=== PATIENT | female | born 1945 | race American Indian/Alaskan Native ===

== ENCOUNTER 2021-05-01 13:49 | Outpatient (CLI) | payer MEDICARE ==
--- NOTE | 2021-05-01 17:32 | Ultrasound Report ---
BILATERAL DIGITAL DIAGNOSTIC MAMMOGRAM WITH CAD , 05/01/2021 RIGHT LIMITED BREAST ULTRASOUND CLINICAL INFORMATION / INDICATION: Palpable right breast mass TECHNIQUE: Digital bilateral mammographic imaging was performed. Spot compression views were obtained . Limited ultrasound was performed. This examination was interpreted with the benefit of Computer-Aid ed Detection (CAD) analysis. COMPARISON: None available. FINDINGS: Breast Density: There are scattered areas of fibroglandular density. MAMMOGRAPHIC FINDINGS: No dominant mass, suspicious calcifications, or architectural distortion in th e left breast. Spot compression views show a spiculated mass in the 2-3:00 location of the right breast, anterior de pth. The mass measures approximately 5.5 cm in greatest diameter. This mass corresponds to the palpab le lump and is consistent with a breast carcinoma. ULTRASOUND FINDINGS: Targeted ultrasound evaluation was performed of the area of interest. Sonograp hic evaluation of the right breast, in the area of the palpable lump demonstrates an irregular solid mass in the 2-3:00 location approximately 4.8 x 3.4 cm. Sonographic evaluation of the right axilla sh ows at least one lymph node that is abnormal with marked focal cortical thickening of approximately 1 1 mm. The appearance is very suggestive for a metastatic lymph node. IMPRESSION: There is a 5 cm spiculated mass in the right breast at approximately 2-3:00, highly sugge stive for a breast carcinoma. Additionally, there is at least one lymph node in the right axilla chevy y suggestive for a metastatic axillary lymph node. Surgical consultation with right breast biopsy is recommended. Follow up recommendation: Biopsy BI-RADS Category 5: Highly Suggestive of Malignancy. A "normal" or negative report should not discourage follow up or biopsy of a clinically significant f inding. A written summary of these findings will be mailed to the patient. The patient will be entered into a mammography reporting system which will generate a reminder letter for the patient's next appointmen t at the appropriate interval. According to the [employer], yearly mammograms are recommended starting at age 40 and continuing as long as a woman is in good health. Breast MRI is recommended for women with an jose roximately 20-25% or greater lifetime risk of breast cancer, including women with a strong family his tory of breast or ovarian cancer and women who have been treated for Hodgkin's disease. Signer Name: Sandra Spicer MD Signed: 05/01/2021 5:27 PM Workstation Name: [id number]
== END 2021-05-01 13:50 | disposition home or self-care (01) ==
LOC: MAMMO 13:49
PROVIDERS: ATTEND Internal Medicine
DX: N63.12 Unspecified lump in the right breast, upper inner quadrant (principal); R92.8 Other abnormal and inconclusive findings on diagnostic imaging of breast
CPT/HCPCS: 77066

== ENCOUNTER 2021-05-13 09:31 | Inpatient (IN) | payer MEDICARE ==
--- NOTE | 2021-05-13 10:12 | Cat Scan Report ---
CT HEAD WITHOUT CONTRAST INDICATION / CLINICAL INFORMATION: CODE STROKE CALL ER MAIN AT 8199 neuro deficits <6hrs or sx prese nt upon awakening. TECHNIQUE: Axial imaging performed from the skull apex through the skull base without the use of cont rast. Sagittal and coronal reformatted images. All CT scans at this location are performed using CT dose reduction for ALARA by means of automated exposure control. COMPARISON: None available. FINDINGS: CEREBRAL PARENCHYMA: No significant abnormality. No acute territorial infarct. There is mild nonspeci fic hypoattenuation throughout the white matter consistent with chronic ischemic changes. No chronic infarct is appreciated. HEMORRHAGE: None. EXTRA-AXIAL SPACES: Normal in size and morphology for the patient's age. VENTRICULAR SYSTEM: Normal in size and morphology for the patient's age. MIDLINE SHIFT OR HERNIATION: None. CEREBELLUM / BRAINSTEM: No significant abnormality. CALVARIUM: No significant abnormality. ORBITS: Normal as visualized. PARANASAL SINUSES / MASTOID AIR CELLS: Normal as visualized. SOFT TISSUES of HEAD: No significant abnormality. ADDITIONAL FINDINGS: None. IMPRESSION: No acute intracranial abnormality. Age-related findings as described. CODE STROKE: Time of Communication (FORK REPAIRER/CDT): 0907 hours Licensed Practitioner Receiving Report: Dr. Christianson Signer Name: Cordell Chinchilla Jr, MD Signed: 05/13/2021 10:08 AM Workstation Name: [id number]
--- NOTE | 2021-05-13 10:22 | Emergency Department Report ---
ED Altered Mental Status HPI - General Stated Complaint: POSS STROKE PUI?: Yes Time Seen by Provider: 05/13/21 09:40 Source: EMS Mode of arrival: Ambulatory Limitations: Altered Mental Status - History of Present Illness Initial Comments: Chief complaint: Altered mental status, low oxygen saturation HPI: This is a 76-year-old female with history of atrial fibrillation, COPD who presents with altered mental status and possible left-sided weakness. Patient last known well time 1:30 PM on Thursday. Family member called EMS for decreased level of consciousness. Patient does not give any history due to altered mental status. She does deny pain. 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 First responders reported to paramedics that patient had severe hypoxia. Oxygen saturation on room air 40%. Patient required nonrebreather for oxygen supplementation. MD Complaint: altered mental status, decreased responsiveness -: unknown Severity: severe Consistency of Symptoms: waxing and waning Context: COPD Treatments Prior to Arrival: oxygen - Related Data Allergies Allergy/AdvReac Type Severity Reaction Status Date / Time No Known Allergies Allergy Verified 05/13/21 09:37 ED Review of Systems ROS: Stated complaint: POSS STROKE Other details as noted in HPI Comment: Unobtainable due to pts medical conditions (Altered mental status) ED Past Medical Hx - Past Medical History Previous Medical History?: Yes Hx COPD: Yes Additional medical history: Atrial fibrillation - Surgical History Additional Surgical History: Unable to obtain - Family History Family history: other (Noncontributory to this presentation) - Social History Smoking Status: Unknown if ever smoked Substance Use Type: Other (Unable to obtain) ED Physical Exam - General General appearance: lethargic, other (Arouses to noxious stimuli) - Head Head exam: Present: atraumatic, normocephalic - Eye Eye exam: Present: normal appearance. Absent: scleral icterus, conjunctival injection - ENT ENT exam: Present: mucous membranes moist - Neck Neck exam: Present: normal inspection, full ROM - Respiratory Respiratory exam: Present: decreased breath sounds. Absent: wheezes, rales - Cardiovascular Cardiovascular Exam: Present: regular rate, normal rhythm, normal heart sounds. Absent: systolic murmur, diastolic murmur, rubs, gallop - GI/Abdominal GI/Abdominal exam: Present: soft, normal bowel sounds. Absent: distended, tenderness, guarding - Extremities Exam Extremities exam: Present: normal inspection - Neurological Exam Neurological exam: Present: altered - Psychiatric Psychiatric exam: Present: flat affect - Skin Skin exam: Present: warm, dry, intact, normal color. Absent: rash ED Course Vital Signs 05/13/21 05/13/21 10:00 11:25 Pulse Rate 93 H Pulse Rate [ 78 Anterior Bilateral Throughout] Respiratory 22 Rate Respiratory 19 Rate [Anterior Bilateral Throughout] O2 Sat by Pulse 95 Oximetry - Reevaluation(s) Reevaluation #1: 05/13/21 15:23 Repeat ABG persistent respiratory failure with hypercapnia respiratory acidosis: BiPAP FiO2 decreased to 30%. - ABG Interpretation Ph: 7.24 PCO2: 82 PO2: 74 Interpretation: respiratory acidosis - Lab Data Result diagrams: 05/13/21 10:35 05/13/21 10:35 Lab Results 05/13/21 05/13/21 05/13/21 Range/Units 10:03 10:35 10:35 WBC 3.1 L (4.5-11.0) K/mm3 RBC 3.88 (3.65-5.03) M/mm3 Hgb 12.0 (10.1-14.3) gm/dl Hct 35.7 (30.3-42.9) % MCV 92 (79-97) fl MCH 31 (28-32) pg MCHC 34 (30-34) % RDW 13.5 (13.2-15.2) % Plt Count 270 (140-440) K/mm3 Turner % (Auto) Exchange Specialist Add Manual Diff Complete Total Counted 100 Seg Neuts % (Manual) 51.0 (40.0-70.0) % Lymphocytes % (Manual) 44.0 H (13.4-35.0) % Monocytes % (Manual) 5.0 (0.0-7.3) % Nucleated RBC % Not Reportable Seg Neutrophils # Man 1.6 L (1.8-7.7) K/mm3 Band Neutrophils # 0.0 K/mm3 Lymphocytes # (Manual) 1.4 (1.2-5.4) K/mm3 Abs React Lymphs (Man) 0.0 K/mm3 Monocytes # (Manual) 0.2 (0.0-0.8) K/mm3 Eosinophils # (Manual) 0.0 (0.0-0.4) K/mm3 Basophils # (Manual) 0.0 (0.0-0.1) K/mm3 Metamyelocytes # 0.0 K/mm3 Myelocytes # 0.0 K/mm3 Promyelocytes # 0.0 K/mm3 Blast Cells # 0.0 K/mm3 WBC Morphology Not Reportable Hypersegmented Neuts Not Reportable Hyposegmented Neuts Not Reportable Hypogranular Neuts Not Reportable Smudge Cells Not Reportable Toxic Granulation Not Reportable Toxic Vacuolation Not Reportable Dohle Bodies Not Reportable Pelger-Huet Anomaly Not Reportable Jesika Rods Not Reportable Platelet Estimate Consistent w auto Clumped Platelets Not Reportable Plt Clumps, EDTA Not Reportable Large Platelets Not Reportable Giant Platelets Not Reportable Platelet Satelliting Not Reportable Plt Morphology Comment Not Reportable RBC Morphology Normal Dimorphic RBCs Not Reportable Polychromasia Not Reportable Hypochromasia Not Reportable Poikilocytosis Not Reportable Anisocytosis Not Reportable Microcytosis Not Reportable Macrocytosis Not Reportable Spherocytes Not Reportable Pappenheimer Bodies Not Reportable Sickle Cells Not Reportable Target Cells Not Reportable Tear Drop Cells Not Reportable Ovalocytes Not Reportable Helmet Cells Not Reportable Frye-Hermitage Bodies Not Reportable [place] Rings Not Reportable [place] Cells Not Reportable Bite Cells Not Reportable Crenated Cell Not Reportable Elliptocytes Not Reportable Acanthocytes (Spur) Not Reportable Rouleaux Not Reportable Hemoglobin C Crystals Not Reportable Schistocytes Not Reportable Malaria parasites Not Reportable Pollo Bodies Not Reportable Hem Pathologist Commnt No PT 15.4 H (12.2-14.9) Sec. INR 1.16 H (0.87-1.13) APTT 35.9 (24.2-36.6) Sec. Thrombin Time (15.1-19.6) Sec. ABG pH 7.252 L (7.320-7.450) POC ABG pCO2 88.2 H (32.0-48.0) mmHg POC ABG pO2 101.1 (83-108) mmHg POC ABG HCO3 38.0 ABG O2 Saturation 96.8 (0-100) POC ABG Base Excess 8.0 ABG Hemoglobin 11.8 L (12.0-17.5) ABG Oxyhemoglobin 95.5 (94-98) ABG Methemoglobin 0.3 (0.0-1.5) ABG Sodium 132.8 L (136.0-145.0) mmol/L ABG Potassium 4.5 (3.40-4.50) mmol/L ABG Chloride 93.0 L (98-107) mmol/L ABG Glucose 114 H (65-95) mg/dL Carboxyhemoglobin 1.0 (0.5-1.5) FiO2 % 50.0 Sodium (137-145) mmol/L Potassium (3.6-5.0) mmol/L Chloride (98-107) mmol/L Carbon Dioxide (22-30) mmol/L Anion Gap mmol/L BUN (7-17) mg/dL Creatinine (0.6-1.2) mg/dL Estimated GFR ml/min BUN/Creatinine Ratio % Glucose (65-100) mg/dL Calcium (8.4-10.2) mg/dL Troponin T (0.00-0.029) ng/mL NT-Pro-B Natriuret Pep (0-900) pg/mL Arterial Blood Glucose 114 H (65-95) mg/dL Arterial Blood Ionized Calcium 4.6 (4.6-5.3) mg/dL 05/13/21 05/13/21 05/13/21 Range/Units 10:35 10:35 10:35 WBC (4.5-11.0) K/mm3 RBC (3.65-5.03) M/mm3 Hgb (10.1-14.3) gm/dl Hct (30.3-42.9) % MCV (79-97) fl MCH (28-32) pg MCHC (30-34) % RDW (13.2-15.2) % Plt Count (140-440) K/mm3 Turner % (Auto) Add Manual Diff Total Counted Seg Neuts % (Manual) (40.0-70.0) % Lymphocytes % (Manual) (13.4-35.0) % Monocytes % (Manual) (0.0-7.3) % Nucleated RBC % Seg Neutrophils # Man (1.8-7.7) K/mm3 Band Neutrophils # K/mm3 Lymphocytes # (Manual) (1.2-5.4) K/mm3 Abs React Lymphs (Man) K/mm3 Monocytes # (Manual) (0.0-0.8) K/mm3 Eosinophils # (Manual) (0.0-0.4) K/mm3 Basophils # (Manual) (0.0-0.1) K/mm3 Metamyelocytes # K/mm3 Myelocytes # K/mm3 Promyelocytes # K/mm3 Blast Cells # K/mm3 WBC Morphology Hypersegmented Neuts Hyposegmented Neuts Hypogranular Neuts Smudge Cells Toxic Granulation Toxic Vacuolation Dohle Bodies Pelger-Huet Anomaly Jesika Rods Platelet Estimate Clumped Platelets Plt Clumps, EDTA Large Platelets Giant Platelets Platelet Satelliting Plt Morphology Comment RBC Morphology Dimorphic RBCs Polychromasia Hypochromasia Poikilocytosis Anisocytosis Microcytosis Macrocytosis Spherocytes Pappenheimer Bodies Sickle Cells Target Cells Tear Drop Cells Ovalocytes Helmet Cells Frye-Hermitage Bodies [place] Rings Jose Luis Cells Bite Cells Crenated Cell Elliptocytes Acanthocytes (Spur) Rouleaux Hemoglobin C Crystals Schistocytes Malaria parasites Pollo Bodies Hem Pathologist Commnt PT (12.2-14.9) Sec. INR (0.87-1.13) APTT (24.2-36.6) Sec. Thrombin Time 18.8 (15.1-19.6) Sec. ABG pH (7.320-7.450) POC ABG pCO2 (32.0-48.0) mmHg POC ABG pO2 (83-108) mmHg POC ABG HCO3 ABG O2 Saturation (0-100) POC ABG Base Excess ABG Hemoglobin (12.0-17.5) ABG Oxyhemoglobin (94-98) ABG Methemoglobin (0.0-1.5) ABG Sodium (136.0-145.0) mmol/L ABG Potassium (3.40-4.50) mmol/L ABG Chloride (98-107) mmol/L ABG Glucose (65-95) mg/dL Carboxyhemoglobin (0.5-1.5) FiO2 % Sodium 135 L (137-145) mmol/L Potassium 4.7 (3.6-5.0) mmol/L Chloride 94.5 L (98-107) mmol/L Carbon Dioxide 35 H (22-30) mmol/L Anion Gap 10 mmol/L BUN 14 (7-17) mg/dL Creatinine 0.6 (0.6-1.2) mg/dL Estimated GFR > 60 ml/min BUN/Creatinine Ratio 23 % Glucose 105 H (65-100) mg/dL Calcium 8.9 (8.4-10.2) mg/dL Troponin T 0.055 H (0.00-0.029) ng/mL NT-Pro-B Natriuret Pep 1348 H (0-900) pg/mL Arterial Blood Glucose (65-95) mg/dL Arterial Blood Ionized Calcium (4.6-5.3) mg/dL 05/13/21 Range/Units 15:00 WBC (4.5-11.0) K/mm3 RBC (3.65-5.03) M/mm3 Hgb (10.1-14.3) gm/dl Hct (30.3-42.9) % MCV (79-97) fl MCH (28-32) pg MCHC (30-34) % RDW (13.2-15.2) % Plt Count (140-440) K/mm3 Turner % (Auto) Add Manual Diff Total Counted Seg Neuts % (Manual) (40.0-70.0) % Lymphocytes % (Manual) (13.4-35.0) % Monocytes % (Manual) (0.0-7.3) % Nucleated RBC % Seg Neutrophils # Man (1.8-7.7) K/mm3 Band Neutrophils # K/mm3 Lymphocytes # (Manual) (1.2-5.4) K/mm3 Abs React Lymphs (Man) K/mm3 Monocytes # (Manual) (0.0-0.8) K/mm3 Eosinophils # (Manual) (0.0-0.4) K/mm3 Basophils # (Manual) (0.0-0.1) K/mm3 Metamyelocytes # K/mm3 Myelocytes # K/mm3 Promyelocytes # K/mm3 Blast Cells # K/mm3 WBC Morphology Hypersegmented Neuts Hyposegmented Neuts Hypogranular Neuts Smudge Cells Toxic Granulation Toxic Vacuolation Dohle Bodies Pelger-Huet Anomaly Jesika Rods Platelet Estimate Clumped Platelets Plt Clumps, EDTA Large Platelets Giant Platelets Platelet Satelliting Plt Morphology Comment RBC Morphology Dimorphic RBCs Polychromasia Hypochromasia Poikilocytosis Anisocytosis Microcytosis Macrocytosis Spherocytes Pappenheimer Bodies Sickle Cells Target Cells Tear Drop Cells Ovalocytes Helmet Cells Frye-Hermitage Bodies [place] Rings [place] Cells Bite Cells Crenated Cell Elliptocytes Acanthocytes (Spur) Rouleaux Hemoglobin C Crystals Schistocytes Malaria parasites Pollo Bodies Hem Pathologist Commnt PT (12.2-14.9) Sec. INR (0.87-1.13) APTT (24.2-36.6) Sec. Thrombin Time (15.1-19.6) Sec. ABG pH 7.240 L (7.320-7.450) POC ABG pCO2 82.6 H (32.0-48.0) mmHg POC ABG pO2 74.9 L (83-108) mmHg POC ABG HCO3 34.6 ABG O2 Saturation 91.9 (0-100) POC ABG Base Excess 4.1 ABG Hemoglobin 15.0 (12.0-17.5) ABG Oxyhemoglobin 90.7 L (94-98) ABG Methemoglobin 0.1 (0.0-1.5) ABG Sodium 133.8 L (136.0-145.0) mmol/L ABG Potassium 4.5 (3.40-4.50) mmol/L ABG Chloride 92.0 L (98-107) mmol/L ABG Glucose 121 H (65-95) mg/dL Carboxyhemoglobin 1.2 (0.5-1.5) FiO2 % 30.0 Sodium (137-145) mmol/L Potassium (3.6-5.0) mmol/L Chloride (98-107) mmol/L Carbon Dioxide (22-30) mmol/L Anion Gap mmol/L BUN (7-17) mg/dL Creatinine (0.6-1.2) mg/dL Estimated GFR ml/min BUN/Creatinine Ratio % Glucose (65-100) mg/dL Calcium (8.4-10.2) mg/dL Troponin T (0.00-0.029) ng/mL NT-Pro-B Natriuret Pep (0-900) pg/mL Arterial Blood Glucose 121 H (65-95) mg/dL Arterial Blood Ionized Calcium (4.6-5.3) mg/dL - EKG Data -: EKG Interpreted by Ok EKG shows normal: sinus rhythm, axis, intervals, QRS complexes, ST-T waves Rate: normal Interpretation: normal EKG 05/13/21 10:22 EKG obtained 1000 EKG interpreted by me Normal sinus rhythm normal rate normal axis normal intervals no ST elevation no ST-T signs of ischemia normal EKG - Radiology Data Radiology results: report reviewed Patient Name: VERO WOLF Gender: Female Date of : 1945 Referring Provider: PAT CHRISTIANSON Organization: [facility] Accession Number: [id number] Requested Date: May 13, 2021 11:01 Report Status: Final Requested Procedure: 1 Procedure Description: XR chest 1V ap Modality: XR Findings Reporting MD: Jayson Oliveira Dictation Time: May 13, 2021 10:47 Machine Fastener: Not available Radioisotope Technician Date: CHEST 1 VIEW 05/13/2021 11:14 AM INDICATION / CLINICAL INFORMATION: Respiratory failure hypoxia COPD. COMPARISON: None available. FINDINGS: SUPPORT DEVICES: None. HEART / MEDIASTINUM: No significant abnormality. LUNGS / PLEURA: There is a moderate right pleural effusion. There are bilateral pulmonary masses measuring up to 3.2 cm on the right. No pneumothorax. There is mild dependent airspace opacity in the left likely representing atelectasis. ADDITIONAL FINDINGS: No significant additional findings. IMPRESSION: 1. There are bilateral pulmonary masses suspicious for metastases. There is a moderate right pleural effusion. Signer Name: Jayson Oliveira MD Signed: 05/13/2021 10:47 AM Workstation Name: [id number] Patient Name: VERO WOLF Gender: Female Date of : 1945 Referring Provider: PAT CHRISTIANSON Organization: [facility] Accession Number: [id number] Requested Date: May 13, 2021 09:38 Report Status: Final Requested Procedure: 1 Procedure Description: CT head/brain wo con Modality: CT Findings Reporting MD: Cordell Chinchilla Dictation Time: May 13, 2021 09:08 Machine Fastener: Not available Radioisotope Technician Date: CT HEAD WITHOUT CONTRAST INDICATION / CLINICAL INFORMATION: CODE STROKE CALL ER MAIN AT 8199 neuro deficits <6hrs or sx present upon awakening. TECHNIQUE: Axial imaging performed from the skull apex through the skull base without the use of contrast. Sagittal and coronal reformatted images. All CT scans at this location are performed using CT dose reduction for ALARA by means of automated exposure control. COMPARISON: None available. FINDINGS: CEREBRAL PARENCHYMA: No significant abnormality. No acute territorial infarct. There is mild nonspecific hypoattenuation throughout the white matter consistent with chronic ischemic changes. No chronic infarct is appreciated. HEMORRHAGE: None. EXTRA-AXIAL SPACES: Normal in size and morphology for the patient's age. VENTRICULAR SYSTEM: Normal in size and morphology for the patient's age. MIDLINE SHIFT OR HERNIATION: None. CEREBELLUM / BRAINSTEM: No significant abnormality. CALVARIUM: No significant abnormality. ORBITS: Normal as visualized. PARANASAL SINUSES / MASTOID AIR CELLS: Normal as visualized. SOFT TISSUES of HEAD: No significant abnormality. ADDITIONAL FINDINGS: None. IMPRESSION: No acute intracranial abnormality. Age-related findings as described. CODE STROKE: Time of Communication (PRINCIPAL SCIENTIST/CDT): 0907 hours Licensed Practitioner Receiving Report: Dr. Christianson Patient Name: VERO WOLF Gender: Female Date of : 1945 Referring Provider: PAT CHRISTIANSON Organization: [facility] Accession Number: [id number] Requested Date: May 13, 2021 12:20 Report Status: Final Requested Procedure: 1 Procedure Description: CT angio chest Modality: CT Findings Reporting MD: Casper Stevens Dictation Time: May 13, 2021 14:01 Machine Fastener: Not available Radioisotope Technician Date: CTA CHEST WITH CONTRAST INDICATION / CLINICAL INFORMATION: Acute respiratory failure hypoxia OMNI 350 100ML . TECHNIQUE: Axial CT images were obtained through the chest after injection of 100 MLO Omnipaque 350 IV contrast. 3 plane MIP and/or 3D reconstructions were produced. All CT scans at this location are performed using CT dose reduction for ALARA by means of automated exposure control. COMPARISON: Ultrasound right breast dated 05/01/21 FINDINGS: PULMONARY ARTERIES: No pulmonary emboli. THORACIC AORTA: No significant abnormality. HEART: Mildly enlarged but no acute abnormality. CORONARY ARTERY CALCIFICATION: None. MEDIASTINUM / KEESHA: No significant abnormality. PLEURA: Moderately large right pleural effusion No pneumothorax. LUNGS: Passive atelectasis of the right lower lobe due to the effusion. Multiple, bilateral calcified pulmonary nodules. Largest nodule measures 2.8 cm in the left upper lobe. ADDITIONAL FINDINGS: Spiculated mass in the right breast measuring 2.6 x 3.9 x 3.2 cm corresponding to the right breast mass noted on recent ultrasound. Mildly enlarged right chest wall/axillary lymph node measuring 1.4 cm short axis. UPPER ABDOMEN: No acute findings. SKELETAL STRUCTURES: No significant osseous abnormality. IMPRESSION: 1. No CT evidence for pulmonary embolism. 2. Moderately large right pleural effusion. Malignant pleural effusion should be considered. 3. Bilateral calcified pulmonary nodules which could represent metastases. 3. Suspected right breast mass corresponding to known right breast mass with enlarged right axillary/chest wall lymph node. Signer Name: Casper Stevens MD Signed: 05/13/2021 2:01 PM Workstation Name: [id number] - Medical Decision Making Acute respiratory failure hypercapnia and hypoxia: Multiple etiologies including COPD exacerbation, bilateral pulmonary masses with presumed malignant effusion. Patient requiring noninvasive positive pressure ventilation. Patient received albuterol Atrovent nebulizer therapy. Acute encephalopathy due to the above. CT scan of the chest also revealed right breast mass. Critical Care Time: Yes Critical care time in (mins) excluding proc time.: 40 Critical care attestation.: If time is entered above; I have spent that time in minutes in the direct care of this critically ill patient, excluding procedure time. 40 minutes of critical care time excluding procedures were used in the care of the patient. I came immediately to the bedside upon patient's arrival. I obtained history from EMS at the bedside. I discussed treatment plan with the nursing team members. I reviewed electronic record. I was concerned for imminent airway compromise. I kept the family member informed. Patient required multiple interventions and reassessments. ED Disposition Clinical Impression: Metastatic breast cancer, Acute respiratory failure with hypoxia and hypercapnia, Acute encephalopathy, Malignant pleural effusion, Breast mass, Lung mass Disposition: OP ADMIT IP TO THIS HOSP Is pt being admited?: Yes Does the pt Need Aspirin: No Condition: Stable
[2021-05-13] MEDS ORDERED: ALBUTEROL 2.5 MG/3 ML NEBU IH ONE (11:00)
[2021-05-13] MEDS ORDERED: IPRATROPIUM 0.02% NEBU 2.5 ML IH ONE (11:00)
[2021-05-13] MEDS ORDERED: methylPREDNISolone Sod Succinate 125 MG/2 ML INJ IV ONE (11:10)
[2021-05-13] MEDS ORDERED: MAGNESIUM SULFATE 2 GM/50 ML BAG IV ONE (11:11)
[2021-05-13 11:21] LABS: Hematocrit 35.7 % (30.3-42.9); Mean Corpuscular HGB Conc 34 % (30-34); Mean Corpuscular Volume 92 fl (79-97); Platelet Count 270 K/mm3 (140-440); Red Blood Count 3.88 M/mm3 (3.65-5.03); Red Cell Distribution Width 13.5 % (13.2-15.2)
[2021-05-13 11:32] LABS: INR 1.16 (0.87-1.13)
[2021-05-13 11:33] LABS: Partial Thromboplastin Time 35.9 Sec. (24.2-36.6)
[2021-05-13 11:44] LABS: Blood Urea Nitrogen 14 mg/dL (7-17); Calcium 8.9 mg/dL (8.4-10.2); Hemolysis Index 5
[2021-05-13 11:50] LABS: BUN/Creatinine Ratio 23
--- NOTE | 2021-05-13 11:51 | XRay Report ---
CHEST 1 VIEW 05/13/2021 11:14 AM INDICATION / CLINICAL INFORMATION: Respiratory failure hypoxia COPD. COMPARISON: None available. FINDINGS: SUPPORT DEVICES: None. HEART / MEDIASTINUM: No significant abnormality. LUNGS / PLEURA: There is a moderate right pleural effusion. There are bilateral pulmonary masses antwan uring up to 3.2 cm on the right. No pneumothorax. There is mild dependent airspace opacity in the lef t likely representing atelectasis. ADDITIONAL FINDINGS: No significant additional findings. IMPRESSION: 1. There are bilateral pulmonary masses suspicious for metastases. There is a moderate right pleural effusion. Signer Name: Jayson Oliveira MD Signed: 05/13/2021 11:47 AM Workstation Name: [id number]
[2021-05-13 15:02] LABS: Platelet Estimate Consistent w Auto; RBC Morphology Normal; Total Cells Counted 100
--- NOTE | 2021-05-13 15:05 | Cat Scan Report ---
CTA CHEST WITH CONTRAST INDICATION / CLINICAL INFORMATION: Acute respiratory failure hypoxia OMNI 350 100ML . TECHNIQUE: Axial CT images were obtained through the chest after injection of 100 MLO Omnipaque 350 I V contrast. 3 plane MIP and/or 3D reconstructions were produced. All CT scans at this location are pe rformed using CT dose reduction for ALARA by means of automated exposure control. COMPARISON: Ultrasound right breast dated 05/01/21 FINDINGS: PULMONARY ARTERIES: No pulmonary emboli. THORACIC AORTA: No significant abnormality. HEART: Mildly enlarged but no acute abnormality. CORONARY ARTERY CALCIFICATION: None. MEDIASTINUM / KEESHA: No significant abnormality. PLEURA: Moderately large right pleural effusion No pneumothorax. LUNGS: Passive atelectasis of the right lower lobe due to the effusion. Multiple, bilateral calcified pulmonary nodules. Largest nodule measures 2.8 cm in the left upper lobe. ADDITIONAL FINDINGS: Spiculated mass in the right breast measuring 2.6 x 3.9 x 3.2 cm corresponding t o the right breast mass noted on recent ultrasound. Mildly enlarged right chest wall/axillary lymph n ode measuring 1.4 cm short axis. UPPER ABDOMEN: No acute findings. SKELETAL STRUCTURES: No significant osseous abnormality. IMPRESSION: 1. No CT evidence for pulmonary embolism. 2. Moderately large right pleural effusion. Malignant pleural effusion should be considered. 3. Bilateral calcified pulmonary nodules which could represent metastases. 3. Suspected right breast mass corresponding to known right breast mass with enlarged right axillary/ chest wall lymph node. Signer Name: Casper Stevens MD Signed: 05/13/2021 3:01 PM Workstation Name: [id number]
--- NOTE | 2021-05-13 16:31 | History and Physical Report ---
History of Present Illness Chief complaint: She has gotten weak History of present illness: 76 YO Female with Metastatic Breast Cancer, Atrial Fib on Therapeutic Anticoagulation, HTN, RA, COPD, Obesity Hypoventilation Syndrome, OA presents ED for evaluation. The patient is confused and lethargic with diminished cognition at the time my evaluation is unable to provide history. Patient history provided by EMS staff, ED staff as well as the patient's son who was made available by telephone for interview. As per son the patient has experienced progressive weakness over the last 1 month with worsening symptoms over the past 1 week. Patient is currently bedbound, nonambulatory, nonverbal, nonresponsive and requires 6/6 assistance with activities of daily living. Patient has a palliative performance score of 20%. EMS notified and upon arrival the patient was found to be in distress and subsequently transported to [facility] for further care and evaluation of the aforementioned symptoms. The patient was seen and evaluated in the emergency department. All lab and imaging studies reviewed. Patient found to have a pulse oximetry of 88% on room air which is consistent with acute hypoxemic respiratory failure. Patient also found to have right breast cancer complicated by right malignant effusion, metabolic encephalopathy. Patient placed on noninvasive positive pressure ventilation due to increased risk of worsening symptoms. No reports of fever, chills, chest pain, palpitation, productive cough, skin rash, recent contacts, or known exposure to COVID-19. No prior admission for review. No medication listed for reconciliation at time of admission. Advanced care planning conducted in ED. Past History Past Medical History: atrial fib, arthritis, cancer, hypertension Past Surgical History: No surgical history, Other (Reviewed) Social history: single, lives with family. denies: smoking, alcohol abuse, prescription drug abuse Family history: diabetes, hypertension Medications and Allergies Allergies Allergy/AdvReac Type Severity Reaction Status Date / Time No Known Allergies Allergy Verified 05/13/21 09:37 Review of Systems ROS unobtainable: due to mental status Exam - Constitutional Vitals: Temp Pulse Resp BP Pulse Ox 78 19 95 05/13/21 11:25 05/13/21 11:25 05/13/21 10:00 General appearance: Present: mild distress - EENT Eyes: Present: PERRL ENT: clear oral mucosa, hearing decreased - Neck Neck: Present: supple, normal ROM - Respiratory Respiratory effort: labored, accessory muscle use Respiratory: bilateral: diminished, rhonchi - Cardiovascular Heart Sounds: Present: S1 & S2. Absent: rub, click - Extremities Extremities: pulses symmetrical Extremity abnormal: edema Peripheral Pulses: within normal limits - Abdominal General gastrointestinal: Present: soft, non-tender, non-distended, normal bowel sounds Female genitourinary: Present: normal - Integumentary Integumentary: Present: clear, dry, clammy, decreased turgor - Musculoskeletal Musculoskeletal: generalized weakness - Psychiatric Psychiatric: no appropriate mood/affect, no intact judgment & insight, no memory intact - Neurologic Neurologic: CNII-XII intact, no focal deficits, moves all extremities, no gait normal HEART Score - HEART Score Troponin: Troponin T 0.055 ng/mL (0.00-0.029) H 05/13/21 10:35 Results - Labs CBC & Chem 7: 05/13/21 10:35 05/13/21 10:35 Labs: Abnormal lab results 05/13/21 05/13/21 05/13/21 Range/Units 10:03 10:35 10:35 WBC 3.1 L (4.5-11.0) K/mm3 Lymphocytes % (Manual) 44.0 H (13.4-35.0) % Seg Neutrophils # Man 1.6 L (1.8-7.7) K/mm3 PT 15.4 H (12.2-14.9) Sec. INR 1.16 H (0.87-1.13) ABG pH 7.252 L (7.320-7.450) POC ABG pCO2 88.2 H (32.0-48.0) mmHg POC ABG pO2 (83-108) mmHg ABG Hemoglobin 11.8 L (12.0-17.5) ABG Oxyhemoglobin (94-98) ABG Sodium 132.8 L (136.0-145.0) mmol/L ABG Chloride 93.0 L (98-107) mmol/L ABG Glucose 114 H (65-95) mg/dL Sodium (137-145) mmol/L Chloride (98-107) mmol/L Carbon Dioxide (22-30) mmol/L Glucose (65-100) mg/dL Troponin T (0.00-0.029) ng/mL NT-Pro-B Natriuret Pep (0-900) pg/mL Arterial Blood Glucose 114 H (65-95) mg/dL 05/13/21 05/13/21 05/13/21 Range/Units 10:35 10:35 15:00 WBC (4.5-11.0) K/mm3 Lymphocytes % (Manual) (13.4-35.0) % Seg Neutrophils # Man (1.8-7.7) K/mm3 PT (12.2-14.9) Sec. INR (0.87-1.13) ABG pH 7.240 L (7.320-7.450) POC ABG pCO2 82.6 H (32.0-48.0) mmHg POC ABG pO2 74.9 L (83-108) mmHg ABG Hemoglobin (12.0-17.5) ABG Oxyhemoglobin 90.7 L (94-98) ABG Sodium 133.8 L (136.0-145.0) mmol/L ABG Chloride 92.0 L (98-107) mmol/L ABG Glucose 121 H (65-95) mg/dL Sodium 135 L (137-145) mmol/L Chloride 94.5 L (98-107) mmol/L Carbon Dioxide 35 H (22-30) mmol/L Glucose 105 H (65-100) mg/dL Troponin T 0.055 H (0.00-0.029) ng/mL NT-Pro-B Natriuret Pep 1348 H (0-900) pg/mL Arterial Blood Glucose 121 H (65-95) mg/dL Assessment and Plan - Patient Problems (1) Metastatic breast cancer Current Visit: Yes Status: Acute Plan to address problem: Pain control, supportive care, patient family wish to initiate comfort measures only. Home hospice care requested. Patient is pending admission to home hospice care. Patient may be discharged home hospice care under the care of the senior medical writer after paperwork completed. (2) Acute respiratory failure with hypoxia and hypercapnia Current Visit: Yes Status: Acute Plan to address problem: Supplemental oxygen, pulse oximetry, pain control, supportive care. Patient family elects to have comfort care measures initiated. (3) Vascular dementia Current Visit: Yes Status: Acute Qualifiers: Dementia behavioral disturbance: without behavioral disturbance Qualified Code(s): F01.50 - Vascular dementia without behavioral disturbance Plan to address problem: Vomiting, redirection, supportive care. (4) Acute encephalopathy Current Visit: Yes Status: Acute Plan to address problem: Supportive care, comfort care measures as per family request (5) Malignant pleural effusion Current Visit: Yes Status: Acute Plan to address problem: Pain control, supportive care, comfort care measures as per family request. (6) DVT prophylaxis Current Visit: Yes Status: Acute Plan to address problem: SCD to bilateral lower extremities while in bed (7) Advance care planning Current Visit: Yes Status: Acute Plan to address problem: Disease education conducted, care plan discussed, diagnoses discussed, patient is full code at this time. Patient family discussing CODE STATUS at this time. Patient poor prognosis discussed with patient's son Alden Mcdonald. [phone]. Patient signing acknowledges understanding poor prognosis. Patient elects to seek home hospice care. Hospice care team notified and patient is pending admission to home hospice care.
[2021-05-13] MEDS ORDERED: ONDANSETRON 4 MG/2 ML INJ IV PRN (16:55)
[2021-05-13] MEDS ORDERED: ACETAMINOPHEN 325 MG TAB PO PRN (16:55)
[2021-05-13] MEDS ORDERED: ALBUTEROL 2.5 MG/3 ML NEBU IH PRN (16:55)
[2021-05-13] MEDS ORDERED: HYDROmorphone 1 MG/1 ML INJ IV PRN (16:55)
[2021-05-13] MEDS ORDERED: MORPHINE 2 MG/1 ML INJ IV PRN (16:55)
[2021-05-13] MEDS ORDERED: SODIUM CHLORIDE 0.9% 1000 ML 1,000 ML IV SCH (17:00)
[2021-05-13 22:30] LABS: Bilirubin,Urine NEG (Negative); Blood,Urine NEG (Negative); Color,Urine Yellow (Yellow); Mucus,Urine FEW /HPF; Urobilinogen,Urine < 2.0 mg/dL (<2.0)
--- NOTE | 2021-05-14 11:44 | Progress Note ---
Assessment and Plan Assessment and plan: - (1) Metastatic breast cancer Current Visit: Yes Status: Acute Plan to address problem: Pain control, supportive care, patient family wish to initiate comfort measures only. Home hospice care requested. Patient is pending admission to home hospice care. Patient may be discharged home hospice care under the care of the medical parasitologist after paperwork completed. (2) Acute respiratory failure with hypoxia and hypercapnia Current Visit: Yes Status: Acute Plan to address problem: Supplemental oxygen, pulse oximetry, pain control, supportive care. Patient family elects to have comfort care measures initiated. (3) Vascular dementia Current Visit: Yes Status: Acute Qualifiers: Dementia behavioral disturbance: without behavioral disturbance Qualified Code(s): F01.50 - Vascular dementia without behavioral disturbance Plan to address problem: Vomiting, redirection, supportive care. (4) Acute encephalopathy Current Visit: Yes Status: Acute Plan to address problem: Supportive care, comfort care measures as per family request (5) Malignant pleural effusion Current Visit: Yes Status: Acute Plan to address problem: Pain control, supportive care, comfort care measures as per family request. (6) DVT prophylaxis Current Visit: Yes Status: Acute Plan to address problem: SCD to bilateral lower extremities while in bed (7) Advance care planning Current Visit: Yes Status: Acute Plan to address problem: Disease education conducted, care plan discussed, diagnoses discussed, patient is full code at this time. Patient family discussing CODE STATUS at this time. Patient poor prognosis discussed with patient's son Alden Mcdonald. [phone]. Patient signing acknowledges understanding poor prognosis. Patient elects to seek home hospice care. Hospice care team notified and patient is pending admission to home hospice care. 05/14/21 Patient admitted yesterday with generalized weakness. She has metastatic breast cancer, right pleural effusion, acute respiratory failure, dementia. Family requests home hospice. oracle database manager consulted. History Interval history: Generalized weakness Hospitalist Physical - Physical exam Narrative exam: Gen: Not in acute distress, ventimask on HEENT: Normocephalic, atraumatic Neck : supple, no JVD Heart:S1 and S2 reg, no murmurs, rubs or gallop Lungs: Decreased breath sounds right base, no wheeze Abd: Soft , non tender, non distended, normal bowel soinds Ext: No edema, no clubbing, no cyanosis Neuro: Drowsy - Constitutional Vitals: Temp Pulse Resp BP Pulse Ox 99.1 F 71 19 121/71 90 05/13/21 18:43 05/14/21 08:01 05/14/21 08:01 05/14/21 08:01 05/14/21 08:01 HEART Score - HEART Score Troponin: Troponin T 0.055 ng/mL (0.00-0.029) H 05/13/21 10:35 Results - Labs CBC & Chem 7: 05/13/21 10:35 05/13/21 10:35 Labs: Laboratory Last Values WBC 3.1 K/mm3 (4.5-11.0) L 05/13/21 10:35 RBC 3.88 M/mm3 (3.65-5.03) 05/13/21 10:35 Hgb 12.0 gm/dl (10.1-14.3) 05/13/21 10:35 Hct 35.7 % (30.3-42.9) 05/13/21 10:35 MCV 92 fl (79-97) 05/13/21 10:35 MCH 31 pg (28-32) 05/13/21 10:35 MCHC 34 % (30-34) 05/13/21 10:35 RDW 13.5 % (13.2-15.2) 05/13/21 10:35 Plt Count 270 K/mm3 (140-440) 05/13/21 10:35 [place] % (Auto) It Support Specialist 05/13/21 10:35 Add Manual Diff Complete 05/13/21 10:35 Total Counted 100 05/13/21 10:35 Seg Neuts % (Manual) 51.0 % (40.0-70.0) 05/13/21 10:35 Lymphocytes % (Manual) 44.0 % (13.4-35.0) H 05/13/21 10:35 Monocytes % (Manual) 5.0 % (0.0-7.3) 05/13/21 10:35 Nucleated RBC % Not Reportable 05/13/21 10:35 Seg Neutrophils # Man 1.6 K/mm3 (1.8-7.7) L 05/13/21 10:35 Band Neutrophils # 0.0 K/mm3 05/13/21 10:35 Lymphocytes # (Manual) 1.4 K/mm3 (1.2-5.4) 05/13/21 10:35 Abs React Lymphs (Man) 0.0 K/mm3 05/13/21 10:35 Monocytes # (Manual) 0.2 K/mm3 (0.0-0.8) 05/13/21 10:35 Eosinophils # (Manual) 0.0 K/mm3 (0.0-0.4) 05/13/21 10:35 Basophils # (Manual) 0.0 K/mm3 (0.0-0.1) 05/13/21 10:35 Metamyelocytes # 0.0 K/mm3 05/13/21 10:35 Myelocytes # 0.0 K/mm3 05/13/21 10:35 Promyelocytes # 0.0 K/mm3 05/13/21 10:35 Blast Cells # 0.0 K/mm3 05/13/21 10:35 WBC Morphology Not Reportable 05/13/21 10:35 Hypersegmented Neuts Not Reportable 05/13/21 10:35 Hyposegmented Neuts Not Reportable 05/13/21 10:35 Hypogranular Neuts Not Reportable 05/13/21 10:35 Smudge Cells Not Reportable 05/13/21 10:35 Toxic Granulation Not Reportable 05/13/21 10:35 Toxic Vacuolation Not Reportable 05/13/21 10:35 Dohle Bodies Not Reportable 05/13/21 10:35 Pelger-Huet Anomaly Not Reportable 05/13/21 10:35 Jesika Rods Not Reportable 05/13/21 10:35 Platelet Estimate Consistent w auto 05/13/21 10:35 Clumped Platelets Not Reportable 05/13/21 10:35 Plt Clumps, EDTA Not Reportable 05/13/21 10:35 Large Platelets Not Reportable 05/13/21 10:35 Giant Platelets Not Reportable 05/13/21 10:35 Platelet Satelliting Not Reportable 05/13/21 10:35 Plt Morphology Comment Not Reportable 05/13/21 10:35 RBC Morphology Normal 05/13/21 10:35 Dimorphic RBCs Not Reportable 05/13/21 10:35 Polychromasia Not Reportable 05/13/21 10:35 Hypochromasia Not Reportable 05/13/21 10:35 Poikilocytosis Not Reportable 05/13/21 10:35 Anisocytosis Not Reportable 05/13/21 10:35 Microcytosis Not Reportable 05/13/21 10:35 Macrocytosis Not Reportable 05/13/21 10:35 Spherocytes Not Reportable 05/13/21 10:35 Pappenheimer Bodies Not Reportable 05/13/21 10:35 Sickle Cells Not Reportable 05/13/21 10:35 Target Cells Not Reportable 05/13/21 10:35 Tear Drop Cells Not Reportable 05/13/21 10:35 Ovalocytes Not Reportable 05/13/21 10:35 Helmet Cells Not Reportable 05/13/21 10:35 [place] Bodies Not Reportable 05/13/21 10:35 [place] Rings Not Reportable 05/13/21 10:35 [place] Cells Not Reportable 05/13/21 10:35 Bite Cells Not Reportable 05/13/21 10:35 Crenated Cell Not Reportable 05/13/21 10:35 Elliptocytes Not Reportable 05/13/21 10:35 Acanthocytes (Spur) Not Reportable 05/13/21 10:35 Rouleaux Not Reportable 05/13/21 10:35 Hemoglobin C Crystals Not Reportable 05/13/21 10:35 Schistocytes Not Reportable 05/13/21 10:35 Malaria parasites Not Reportable 05/13/21 10:35 [place]o Bodies Not Reportable 05/13/21 10:35 Hem Pathologist Commnt No 05/13/21 10:35 PT 15.4 Sec. (12.2-14.9) H 05/13/21 10:35 INR 1.16 (0.87-1.13) H 05/13/21 10:35 APTT 35.9 Sec. (24.2-36.6) 05/13/21 10:35 Thrombin Time 18.8 Sec. (15.1-19.6) 05/13/21 10:35 ABG pH 7.509 (7.320-7.450) H 05/14/21 05:33 POC ABG pCO2 36.9 mmHg (32.0-48.0) 05/14/21 05:33 POC ABG pO2 97.6 mmHg (83-108) 05/14/21 05:33 POC ABG HCO3 28.7 05/14/21 05:33 ABG O2 Saturation 97.9 (0-100) 05/14/21 05:33 POC ABG Base Excess 5.5 05/14/21 05:33 ABG Hemoglobin 12.5 (12.0-17.5) 05/14/21 05:33 ABG Oxyhemoglobin 96.8 (94-98) 05/14/21 05:33 ABG Methemoglobin 0.3 (0.0-1.5) 05/14/21 05:33 ABG Sodium 133.9 mmol/L (136.0-145.0) L 05/14/21 05:33 ABG Potassium 4.7 mmol/L (3.40-4.50) H 05/14/21 05:33 ABG Chloride 94.0 mmol/L (98-107) L 05/14/21 05:33 ABG Glucose 149 mg/dL (65-95) H 05/14/21 05:33 Carboxyhemoglobin 0.8 (0.5-1.5) 05/14/21 05:33 FiO2 % 35.0 05/14/21 05:33 Sodium 135 mmol/L (137-145) L 05/13/21 10:35 Potassium 4.7 mmol/L (3.6-5.0) 05/13/21 10:35 Chloride 94.5 mmol/L (98-107) L 05/13/21 10:35 Carbon Dioxide 35 mmol/L (22-30) H 05/13/21 10:35 Anion Gap 10 mmol/L 05/13/21 10:35 BUN 14 mg/dL (7-17) 05/13/21 10:35 Creatinine 0.6 mg/dL (0.6-1.2) 05/13/21 10:35 Estimated GFR > 60 ml/min 05/13/21 10:35 BUN/Creatinine Ratio 23 % 05/13/21 10:35 Glucose 105 mg/dL (65-100) H 05/13/21 10:35 POC Glucose 167 mg/dL (70-105) H 05/13/21 22:06 Calcium 8.9 mg/dL (8.4-10.2) 05/13/21 10:35 Troponin T 0.055 ng/mL (0.00-0.029) H 05/13/21 10:35 NT-Pro-B Natriuret Pep 1348 pg/mL (0-900) H 05/13/21 10:35 Arterial Blood Glucose 149 mg/dL (65-95) H 05/14/21 05:33 Arterial Blood Ionized Calcium 4.6 mg/dL (4.6-5.3) 05/13/21 10:03 Urine Color Yellow (Yellow) 05/13/21 21:57 Urine Turbidity Clear (Clear) 05/13/21 21:57 Urine pH 5.0 (5.0-7.0) 05/13/21 21:57 Ur Specific [place] 1.060 (1.003-1.030) H 05/13/21 21:57 Urine Protein 30 mg/dl mg/dL (Negative) 05/13/21 21:57 Urine Glucose (UA) Neg mg/dL (Negative) 05/13/21 21:57 Urine Ketones Tr mg/dL (Negative) 05/13/21 21:57 Urine Blood Neg (Negative) 05/13/21 21:57 Urine Nitrite Neg (Negative) 05/13/21 21:57 Urine Bilirubin Neg (Negative) 05/13/21 21:57 Urine Urobilinogen < 2.0 mg/dL (<2.0) 05/13/21 21:57 Ur Leukocyte Esterase Neg (Negative) 05/13/21 21:57 Urine WBC (Auto) 1.0 /HPF (0.0-6.0) 05/13/21 21:57 Urine RBC (Auto) 4.0 /HPF (0.0-6.0) 05/13/21 21:57 U Epithel Cells (Auto) 2.0 /HPF (0-13.0) 05/13/21 21:57 Urine Mucus Few /HPF 05/13/21 21:57 Patiño/IV: Voiding Method External Female Catheter Active Medications - Current Medications Current Medications: Generic Name Dose Route Start Last Admin Trade Name Freq PRN Reason Stop Dose Admin Acetaminophen 650 mg 05/13/21 16:55 Acetaminophen 325 Mg Tab PO Q4H PRN Pain MILD(1-3)/Fever >100.5/LEE Albuterol 2.5 mg 05/13/21 16:55 05/14/21 00:37 Albuterol 2.5 Mg/3 Ml Nebu IH 2.5 mg Q4H PRN Administration Shortness Of Breath Hydromorphone HCl 0.5 mg 05/13/21 16:55 Hydromorphone 1 Mg/1 Ml Inj IV Q3H PRN Pain , Severe (7-10) Sodium Chloride 1,000 mls @ 42 mls/hr 05/13/21 17:00 05/14/21 10:24 Nacl 0.9% 1000 Ml IV 42 mls/hr DIRECT REUBEN Administration Morphine Sulfate 2 mg 05/13/21 16:55 Morphine 2 Mg/1 Ml Inj IV Q6H PRN Pain, Moderate (4-6) Ondansetron HCl 4 mg 05/13/21 16:55 Ondansetron 4 Mg/2 Ml Inj IV Q8H PRN Nausea And Vomiting Sodium Chloride 10 ml 05/13/21 22:00 05/14/21 10:24 Sodium Chloride 0.9% 10 Ml Flush Syringe IV 10 ml BID REUBEN Administration Sodium Chloride 10 ml 05/13/21 16:55 Sodium Chloride 0.9% 10 Ml Flush Syringe IV PRN PRN LINE FLUSH
[2021-05-15 06:32] LABS: Hematocrit 35.7 % (30.3-42.9); Hemoglobin 11.8 gm/dl (10.1-14.3); Mean Corpuscular HGB Conc 33 % (30-34); Mean Corpuscular Volume 92 fl (79-97); Platelet Count 267 K/mm3 (140-440); Red Blood Count 3.88 M/mm3 (3.65-5.03); Red Cell Distribution Width 14.1 % (13.2-15.2)
[2021-05-15 06:43] LABS: Calcium 8.1 mg/dL (8.4-10.2)
--- NOTE | 2021-05-15 13:55 | Progress Note ---
Assessment and Plan Assessment and plan: - (1) Metastatic breast cancer Current Visit: Yes Status: Acute Plan to address problem: Pain control, supportive care, patient family wish to initiate comfort measures only. Home hospice care requested. Patient is pending admission to home hospice care. Patient may be discharged home hospice care under the care of the clinical laboratory medical director after paperwork completed. (2) Acute respiratory failure with hypoxia and hypercapnia Current Visit: Yes Status: Acute Plan to address problem: Supplemental oxygen, pulse oximetry, pain control, supportive care. Patient family elects to have comfort care measures initiated. (3) Vascular dementia Current Visit: Yes Status: Acute Qualifiers: Dementia behavioral disturbance: without behavioral disturbance Qualified Code(s): F01.50 - Vascular dementia without behavioral disturbance Plan to address problem: Vomiting, redirection, supportive care. (4) Acute encephalopathy Current Visit: Yes Status: Acute Plan to address problem: Supportive care, comfort care measures as per family request (5) Malignant pleural effusion Current Visit: Yes Status: Acute Plan to address problem: Pain control, supportive care, comfort care measures as per family request. (6) DVT prophylaxis Current Visit: Yes Status: Acute Plan to address problem: SCD to bilateral lower extremities while in bed (7) Advance care planning Current Visit: Yes Status: Acute Plan to address problem: Disease education conducted, care plan discussed, diagnoses discussed, patient is full code at this time. Patient family discussing CODE STATUS at this time. Patient poor prognosis discussed with patient's son Alden Mcdonald. [phone]. Patient signing acknowledges understanding poor prognosis. Patient elects to seek home hospice care. Hospice care team notified and patient is pending admission to home hospice care. 05/14/21 Patient admitted yesterday with generalized weakness. She has metastatic breast cancer, right pleural effusion, acute respiratory failure, dementia. Family requests home hospice. post exchange manager consulted. 05/15/21 Patient admitted with generalized weakness. she feels better. patient has metastatic breast cancer, right pleural effusion. Now on Oxygen at 5 l/min nc. On discharge to go to home with home hospice . History Interval history: Generalized weakness Hospitalist Physical - Physical exam Narrative exam: Gen: Not in acute distress, HEENT: Normocephalic, atraumatic Neck : supple, no JVD Heart:S1 and S2 reg, no murmurs, rubs or gallop Lungs: Decreased breath sounds right base, no wheeze Abd: Soft , non tender, non distended, normal bowel soinds Ext: No edema, no clubbing, no cyanosis Neuro:Awake,alert - Constitutional Vitals: Temp Pulse Resp BP Pulse Ox 98.7 F 84 18 132/59 99 05/15/21 11:23 05/15/21 11:23 05/15/21 11:23 05/15/21 11:23 05/15/21 11:23 HEART Score - HEART Score Troponin: Troponin T 0.055 ng/mL (0.00-0.029) H 05/13/21 10:35 Results - Labs CBC & Chem 7: 05/15/21 05:02 05/15/21 05:02 Labs: Laboratory Last Values WBC 4.3 K/mm3 (4.5-11.0) L 05/15/21 05:02 RBC 3.88 M/mm3 (3.65-5.03) 05/15/21 05:02 Hgb 11.8 gm/dl (10.1-14.3) 05/15/21 05:02 Hct 35.7 % (30.3-42.9) 05/15/21 05:02 MCV 92 fl (79-97) 05/15/21 05:02 MCH 30 pg (28-32) 05/15/21 05:02 MCHC 33 % (30-34) 05/15/21 05:02 RDW 14.1 % (13.2-15.2) 05/15/21 05:02 Plt Count 267 K/mm3 (140-440) 05/15/21 05:02 Keith % (Auto) Physical Therapy Nurse 05/13/21 10:35 Add Manual Diff Complete 05/13/21 10:35 Total Counted 100 05/13/21 10:35 Seg Neuts % (Manual) 51.0 % (40.0-70.0) 05/13/21 10:35 Lymphocytes % (Manual) 44.0 % (13.4-35.0) H 05/13/21 10:35 Monocytes % (Manual) 5.0 % (0.0-7.3) 05/13/21 10:35 Nucleated RBC % Not Reportable 05/13/21 10:35 Seg Neutrophils # Man 1.6 K/mm3 (1.8-7.7) L 05/13/21 10:35 Band Neutrophils # 0.0 K/mm3 05/13/21 10:35 Lymphocytes # (Manual) 1.4 K/mm3 (1.2-5.4) 05/13/21 10:35 Abs React Lymphs (Man) 0.0 K/mm3 05/13/21 10:35 Monocytes # (Manual) 0.2 K/mm3 (0.0-0.8) 05/13/21 10:35 Eosinophils # (Manual) 0.0 K/mm3 (0.0-0.4) 05/13/21 10:35 Basophils # (Manual) 0.0 K/mm3 (0.0-0.1) 05/13/21 10:35 Metamyelocytes # 0.0 K/mm3 05/13/21 10:35 Myelocytes # 0.0 K/mm3 05/13/21 10:35 Promyelocytes # 0.0 K/mm3 05/13/21 10:35 Blast Cells # 0.0 K/mm3 05/13/21 10:35 WBC Morphology Not Reportable 05/13/21 10:35 Hypersegmented Neuts Not Reportable 05/13/21 10:35 Hyposegmented Neuts Not Reportable 05/13/21 10:35 Hypogranular Neuts Not Reportable 05/13/21 10:35 Smudge Cells Not Reportable 05/13/21 10:35 Toxic Granulation Not Reportable 05/13/21 10:35 Toxic Vacuolation Not Reportable 05/13/21 10:35 Dohle Bodies Not Reportable 05/13/21 10:35 Pelger-Huet Anomaly Not Reportable 05/13/21 10:35 Jesika Rods Not Reportable 05/13/21 10:35 Platelet Estimate Consistent w auto 05/13/21 10:35 Clumped Platelets Not Reportable 05/13/21 10:35 Plt Clumps, EDTA Not Reportable 05/13/21 10:35 Large Platelets Not Reportable 05/13/21 10:35 Giant Platelets Not Reportable 05/13/21 10:35 Platelet Satelliting Not Reportable 05/13/21 10:35 Plt Morphology Comment Not Reportable 05/13/21 10:35 RBC Morphology Normal 05/13/21 10:35 Dimorphic RBCs Not Reportable 05/13/21 10:35 Polychromasia Not Reportable 05/13/21 10:35 Hypochromasia Not Reportable 05/13/21 10:35 Poikilocytosis Not Reportable 05/13/21 10:35 Anisocytosis Not Reportable 05/13/21 10:35 Microcytosis Not Reportable 05/13/21 10:35 Macrocytosis Not Reportable 05/13/21 10:35 Spherocytes Not Reportable 05/13/21 10:35 Pappenheimer Bodies Not Reportable 05/13/21 10:35 Sickle Cells Not Reportable 05/13/21 10:35 Target Cells Not Reportable 05/13/21 10:35 Tear Drop Cells Not Reportable 05/13/21 10:35 Ovalocytes Not Reportable 05/13/21 10:35 Helmet Cells Not Reportable 05/13/21 10:35 Frye-Polonia Bodies Not Reportable 05/13/21 10:35 Warren Rings Not Reportable 05/13/21 10:35 Jose Luis Cells Not Reportable 05/13/21 10:35 Bite Cells Not Reportable 05/13/21 10:35 Crenated Cell Not Reportable 05/13/21 10:35 Elliptocytes Not Reportable 05/13/21 10:35 Acanthocytes (Spur) Not Reportable 05/13/21 10:35 Rouleaux Not Reportable 05/13/21 10:35 Hemoglobin C Crystals Not Reportable 05/13/21 10:35 Schistocytes Not Reportable 05/13/21 10:35 Malaria parasites Not Reportable 05/13/21 10:35 Pollo Bodies Not Reportable 05/13/21 10:35 Hem Pathologist Commnt No 05/13/21 10:35 PT 15.4 Sec. (12.2-14.9) H 05/13/21 10:35 INR 1.16 (0.87-1.13) H 05/13/21 10:35 APTT 35.9 Sec. (24.2-36.6) 05/13/21 10:35 Thrombin Time 18.8 Sec. (15.1-19.6) 05/13/21 10:35 ABG pH 7.509 (7.320-7.450) H 05/14/21 05:33 POC ABG pCO2 36.9 mmHg (32.0-48.0) 05/14/21 05:33 POC ABG pO2 97.6 mmHg (83-108) 05/14/21 05:33 POC ABG HCO3 28.7 05/14/21 05:33 ABG O2 Saturation 97.9 (0-100) 05/14/21 05:33 POC ABG Base Excess 5.5 05/14/21 05:33 ABG Hemoglobin 12.5 (12.0-17.5) 05/14/21 05:33 ABG Oxyhemoglobin 96.8 (94-98) 05/14/21 05:33 ABG Methemoglobin 0.3 (0.0-1.5) 05/14/21 05:33 ABG Sodium 133.9 mmol/L (136.0-145.0) L 05/14/21 05:33 ABG Potassium 4.7 mmol/L (3.40-4.50) H 05/14/21 05:33 ABG Chloride 94.0 mmol/L (98-107) L 05/14/21 05:33 ABG Glucose 149 mg/dL (65-95) H 05/14/21 05:33 Carboxyhemoglobin 0.8 (0.5-1.5) 05/14/21 05:33 FiO2 % 35.0 05/14/21 05:33 Sodium 135 mmol/L (137-145) L 05/15/21 05:02 Potassium 4.7 mmol/L (3.6-5.0) 05/15/21 05:02 Chloride 95.7 mmol/L (98-107) L 05/15/21 05:02 Carbon Dioxide 31 mmol/L (22-30) H 05/15/21 05:02 Anion Gap 13 mmol/L 05/15/21 05:02 BUN 39 mg/dL (7-17) H 05/15/21 05:02 Creatinine 1.2 mg/dL (0.6-1.2) D 05/15/21 05:02 Estimated GFR 53 ml/min 05/15/21 05:02 BUN/Creatinine Ratio 33 % 05/15/21 05:02 Glucose 101 mg/dL (65-100) H 05/15/21 05:02 POC Glucose 167 mg/dL (70-105) H 05/13/21 22:06 Calcium 8.1 mg/dL (8.4-10.2) L 05/15/21 05:02 Troponin T 0.055 ng/mL (0.00-0.029) H 05/13/21 10:35 NT-Pro-B Natriuret Pep 1348 pg/mL (0-900) H 05/13/21 10:35 Arterial Blood Glucose 149 mg/dL (65-95) H 05/14/21 05:33 Arterial Blood Ionized Calcium 4.6 mg/dL (4.6-5.3) 05/13/21 10:03 Urine Color Yellow (Yellow) 05/13/21 21:57 Urine Turbidity Clear (Clear) 05/13/21 21:57 Urine pH 5.0 (5.0-7.0) 05/13/21 21:57 Ur Specific Coin 1.060 (1.003-1.030) H 05/13/21 21:57 Urine Protein 30 mg/dl mg/dL (Negative) 05/13/21 21:57 Urine Glucose (UA) Neg mg/dL (Negative) 05/13/21 21:57 Urine Ketones Tr mg/dL (Negative) 05/13/21 21:57 Urine Blood Neg (Negative) 05/13/21 21:57 Urine Nitrite Neg (Negative) 05/13/21 21:57 Urine Bilirubin Neg (Negative) 05/13/21 21:57 Urine Urobilinogen < 2.0 mg/dL (<2.0) 05/13/21 21:57 Ur Leukocyte Esterase Neg (Negative) 05/13/21 21:57 Urine WBC (Auto) 1.0 /HPF (0.0-6.0) 05/13/21 21:57 Urine RBC (Auto) 4.0 /HPF (0.0-6.0) 05/13/21 21:57 U Epithel Cells (Auto) 2.0 /HPF (0-13.0) 05/13/21 21:57 Urine Mucus Few /HPF 05/13/21 21:57 Patiño/IV: Voiding Method External Female Catheter Active Medications - Current Medications Current Medications: Generic Name Dose Route Start Last Admin Trade Name Freq PRN Reason Stop Dose Admin Acetaminophen 650 mg 05/13/21 16:55 Acetaminophen 325 Mg Tab PO Q4H PRN Pain MILD(1-3)/Fever >100.5/LEE Albuterol 2.5 mg 05/13/21 16:55 05/14/21 00:37 Albuterol 2.5 Mg/3 Ml Nebu IH 2.5 mg Q4H PRN Administration Shortness Of Breath Hydromorphone HCl 0.5 mg 05/13/21 16:55 Hydromorphone 1 Mg/1 Ml Inj IV Q3H PRN Pain , Severe (7-10) Sodium Chloride 1,000 mls @ 42 mls/hr 05/13/21 17:00 05/14/21 10:24 Nacl 0.9% 1000 Ml IV 42 mls/hr DIRECT REUBEN Administration Morphine Sulfate 2 mg 05/13/21 16:55 Morphine 2 Mg/1 Ml Inj IV Q6H PRN Pain, Moderate (4-6) Ondansetron HCl 4 mg 05/13/21 16:55 Ondansetron 4 Mg/2 Ml Inj IV Q8H PRN Nausea And Vomiting Sodium Chloride 10 ml 05/13/21 22:00 05/15/21 11:24 Sodium Chloride 0.9% 10 Ml Flush Syringe IV Not Given BID REUBEN Sodium Chloride 10 ml 05/13/21 16:55 Sodium Chloride 0.9% 10 Ml Flush Syringe IV PRN PRN LINE FLUSH Nutrition/Malnutrition Assess - Dietary Evaluation Nutrition/Malnutrition Findings: Nutrition Notes Start: 05/14/21 15:34 Freq: Status: Active Protocol: Document 05/14/21 15:34 CW (Rec: 05/14/21 15:41 CW [id number]) Nutrition Notes Need for Assessment generated from: MST Initial or Follow up Assessment Current Diagnosis COPD,Hypertension Other Pertinent Diagnosis metatstatic BrCA, Dementia Current Diet NPO Labs/Tests 05/13/2021 Na 135 Pertinent Medications NS at 42 ml/hr Height 5 ft 5 in Weight 104.326 kg Johnston Body Weight (kg) 56.81 BMI 38.2 Weight Status Obese Subjective/Other Information Rn screen for MST d/t unsure weight loss. Pt is nonreposnsive and nonverbal. POC is for pt to undergo home hospice care. If nutrition support is warranted recommend TF. Burn Absent Trauma Absent Current % PO Negligible Minimum of two criteria No physical signs of malnutrition #1 Nutrition Diagnosis Inadequate oral intake Etiology altered status As Evidenced by Signs and Symptoms pt is unreponsive and nonverbal Is Patient Ambulatory and/or Out of Bed No REE-(Wallace-St. Jeor-confined to bed) 1852.908 Kcal/Kg value to use for calculation 13 Approximate Energy Requirements Using 1356 kcal/Kg Calculation Used for Recommendations Kcal/kg Additional Notes protein needs: 57 - 68g (1 - 1 .2g/kgIBW) fluid needs: 1 ml/kcal Nutrition Intervention Change Diet Order: initiate nutrition support if within POC Nutrition Support: Jevity at 50 ml/hr with free water flush of 75 ml q4h Kcal 1,440 Protein (gm) 67 Fluid (mL) 968 Goal #1 Await POC for nutrition support Anticipated Discharge Needs: unable to determine at this time Follow-Up By: 05/17/21 Additional Comments F/U for POC
[2021-05-15] MEDS ORDERED: NON-FORMULARY EACH (Rivaroxaban 20 MG Tablet) PO SCH (14:15)
--- NOTE | 2021-05-15 14:47 | Event Note ---
Date: 05/15/21 Discussed with son. The family wants home hospice.
[2021-05-15] MEDS: IPRATROPIUM/ALBUTEROL SULFATE 3 ML AMPUL.NEB IH SCH (17:24)
[2021-05-15] MEDS: RIVAROXABAN 20 MG TAB PO SCH (18:57)
[2021-05-15] MEDS: methylPREDNISolone Sod Succinate 40 MG/1 ML INJ IV SCH ×2 (18:57→19:00)
[2021-05-15] MEDS: MEMANTINE 10 MG TAB PO SCH (18:57)
[2021-05-15] MEDS: METOPROLOL SUCCINATE XL 25 MG TAB PO SCH (18:57)
[2021-05-16] MEDS: MEMANTINE 10 MG TAB PO SCH ×2 (04:50→10:53)
[2021-05-16] MEDS: methylPREDNISolone Sod Succinate 40 MG/1 ML INJ IV SCH ×2 (04:52→06:58)
[2021-05-16] MEDS: IPRATROPIUM/ALBUTEROL SULFATE 3 ML AMPUL.NEB IH SCH ×2 (08:26→13:25)
[2021-05-16] MEDS: METOPROLOL SUCCINATE XL 25 MG TAB PO SCH (10:53)
[2021-05-16] MEDS: RIVAROXABAN 20 MG TAB PO SCH (10:53)
--- NOTE | 2021-05-16 11:26 | Discharge Summary ---
Providers - Providers Date of Admission: 05/13/21 16:55 Date of discharge: 05/16/21 Attending physician: CALEB ALFARO 05/15/21 13:56 Occupational Therapy Evaluate and Treat [CONS] Routine Comment: Reason For Exam: weakness Physical Therapy Evaluation and Treat [CONS] Routine Comment: Reason For Exam: weakness Primary care physician: ALARM SERVICE TECHNICIAN Hospitalization Condition: Stable Hospital course: 76 YO Female with Metastatic Breast Cancer, Atrial Fib on Therapeutic Anticoagulation, HTN, RA, COPD, Obesity Hypoventilation Syndrome, OA presented to ED for evaluation. The patient was confused and lethargic with diminished cognition at the time of evaluation is unable to provide history. Patient history provided by EMS staff, ED staff as well as the patient's son who was made available by telephone for interview. As per son the patient has experienced progressive weakness over the last 1 month with worsening symptoms over the past 1 week. Patient is currently bedbound, nonambulatory, nonverbal, nonresponsive and requires assistance with activities of daily living. EMS notified and upon arrival the patient was found to be in distress and subsequently transported to [facility] for further care and evaluation of the aforementioned symptoms. The patient was seen and evaluated in the emergency department. Patient found to have a pulse oximetry of 88% on room air which is consistent with acute hypoxemic respiratory failure. Patient also found to have right breast cancer complicated by right malignant effusion, metabolic encephalopathy. Patient placed on noninvasive positive pressure ventilation due to increased risk of worsening symptoms. No reports of fever, chills, chest pain, palpitation, productive cough, skin rash, recent contacts, or known exposure to COVID-19. Advanced care planning conducted in ED. patient was admitted. Her mental status improved, she became awake,alert. Family wanted home hospice so was discharged home with home hospice on 05/16/21 1) Metastatic breast cancer Current Visit: Yes Status: Acute Plan to address problem: Pain control, supportive care, patient family wish to initiate comfort measures only. Home hospice care requested. Patient is pending admission to home hos pice care. Patient may be discharged home hospice care under the care of the medical supervisor after paperwork completed. (2) Acute respiratory failure with hypoxia and hypercapnia Current Visit: Yes Status: Acute Plan to address problem: Supplemental oxygen, pulse oximetry, pain control, supportive care. Patient family elects to have comfort care measures initiated. (3) Vascular dementia Current Visit: Yes Status: Acute Qualifiers: Dementia behavioral disturbance: without behavioral disturbance Qualified Code(s): F01.50 - Vascular dementia without behavioral disturbance Plan to address problem: Vomiting, redirection, supportive care. (4) Acute encephalopathy Current Visit: Yes Status: Acute Plan to address problem: Supportive care, comfort care measures as per family request (5) Malignant pleural effusion Current Visit: Yes Status: Acute Plan to address problem: Pain control, supportive care, comfort care measures as per family request. (6) DVT prophylaxis Current Visit: Yes Status: Acute Plan to address problem: SCD to bilateral lower extremities while in bed (7) Advance care planning Current Visit: Yes Status: Acute Plan to address problem: Disease education conducted, care plan discussed, diagnoses discussed, patient is full code at this time. Patient family discussing CODE STATUS at this time. Patient poor prognosis discussed with patient's son Alden Mcdonald. [phone]. Patient signing acknowledges understanding poor prognosis. Patient elects to seek home hospice care. Hospice care team notified and patient is pending admission to home hospice care. 05/14/21 Patient admitted yesterday with generalized weakness. She has metastatic breast cancer, right pleural effusion, acute respiratory failure, dementia. Family requests home hospice. accounting systems manager consulted. 05/15/21 Patient admitted with generalized weakness. she feels better. patient has metastatic breast cancer, right pleural effusion. Now on Oxygen at 5 l/min nc. On discharge to go to home with home hospice . 05/16/21 Patient discharged home with Home hospice. Disposition: 50 HOSPICE/HOME Final Discharge Diagnosis (Prints w/discharge instructions): 1.Acute on chronic resp failure. 2.Metastatic Breast cancer - Discharge Diagnoses (1) Acute and chronic respiratory failure Status: Acute (2) Lung mass Status: Acute (3) Metastatic breast cancer Status: Acute (4) Hyponatremia Status: Acute Core Measure Documentation - Palliative Care Palliative Care/ Comfort Measures: Hospice Care - Core Measures Any of the following diagnoses?: none Exam - Constitutional Vitals: Temp Pulse Resp BP Pulse Ox 97.9 F 92 H 18 146/72 94 05/16/21 08:29 05/16/21 08:29 05/16/21 08:29 05/16/21 08:29 05/16/21 08:29 Plan Activity: advance as tolerated Diet: low fat, low cholesterol, low salt, other (soft) Special Instructions: home oxygen via (Home Oxygen at 3 l/min via [place]), home hospice Plan of Treatment: 1.Follow up with PCP in 1 week. Follow up with: PRIMARY CARE, [Primary Care Provider] - 7 Days Prescriptions: methylPREDNISolone [Medrol 4MG DOSEPAK (21 tabs)] 4 mg PO .TAPER #21 tab.ds.pk
[2021-05-16 15:13] VITALS: BP 146/73
== END 2021-05-16 15:30 | disposition hospice, home (50) | DRG 189 ==
LOC: ED 09:31 → 3A 16:55 → 4A 05-14 07:00
PROVIDERS: ADMIT Internal Medicine; ATTEND Internal Medicine
PROC: 5A09357 Assistance with Respiratory Ventilation, Less than 24 Consecutive Hours, Continuous Positive Airway Pressure (ICD-10-PCS; principal; 2021-05-13)
PROC: 4A033R1 Measurement of Arterial Saturation, Peripheral, Percutaneous Approach (ICD-10-PCS; 2021-05-13)
PROC: 5A09357 Assistance with Respiratory Ventilation, Less than 24 Consecutive Hours, Continuous Positive Airway Pressure (ICD-10-PCS; 2021-05-14)
PROC: 5A09357 Assistance with Respiratory Ventilation, Less than 24 Consecutive Hours, Continuous Positive Airway Pressure (ICD-10-PCS; 2021-05-15)
DX: J96.21 Acute and chronic respiratory failure with hypoxia (principal); G93.41 Metabolic encephalopathy; J91.0 Malignant pleural effusion; E66.2 Morbid (severe) obesity with alveolar hypoventilation; Z68.41 Body mass index [BMI] 40.0-44.9, adult; J96.22 Acute and chronic respiratory failure with hypercapnia; F01.50 Vascular dementia, unspecified severity, without behavioral disturbance, psychotic disturbance, mood disturbance, and anxiety; I10 Essential (primary) hypertension; I48.91 Unspecified atrial fibrillation; J44.9 Chronic obstructive pulmonary disease, unspecified; Z79.01 Long term (current) use of anticoagulants; M06.9 Rheumatoid arthritis, unspecified; Z51.5 Encounter for palliative care; R91.8 Other nonspecific abnormal finding of lung field; C50.911 Malignant neoplasm of unspecified site of right female breast
CPT/HCPCS: 36415; 36600; 70450; 71045; 71275; 80048; 81001; 82805; 82962; 83880; 84484; 85007; 85025; 85027; 85610; 85670; 85730; 93005; 94640; 94644; 94660; 96374; 96375; G0378; J2920; J2930; J3475; J7030; Q9967